=== PATIENT | female | born 1990 | race Hispanic/Latino ===

== ENCOUNTER 2024-02-13 12:39 | Inpatient (IN) | payer MEDICAID, OTHER, SELFPAY ==
[2024-02-13 14:33] LABS: #Basophils 0.01 10x3/uL (0.0-0.2); #Eosinophils 0.02 10x3/uL (0.0-0.5); #Monocytes 0.55 10x3/uL (0.0-1.1); #Neutrophils 7.17 10x3/uL (1.5-8.4); %Basophils 0.1 % (0.0-2.0); %Eosinophils 0.2 % (0.0-6.0); %Lymphocytes 14.1 % (18.0-47.0); %Neutrophils 78.4 % (40.0-75.0); Hematocrit 37.5 % (34.9-44.5); Hemoglobin 12.2 g/dL (12.0-15.5); Mean Corpuscular HGB CONC 32.5 g/dL (32.0-36.0); Mean Corpuscular Hemoglobin 30.2 pg (27.0-33.0); Mean Corpuscular Volume 92.8 fL (81.6-98.3); Mean Platelet Volume 10.3 fL (7.4-10.4); Platelet Count 279 10x3/uL (150-450); RBC Distribution Width 13.8 % (11.5-14.5); Red Blood Cell (RBC) Count 4.04 10x6/uL (3.90-5.03); White Blood Cell (WBC) Count 9.2 10x3/uL (3.5-10.5)
[2024-02-13 17:27] LABS: Hep B Surf Ag - L&D Non-Reactive S/CO (NonReactive)
[2024-02-13 17:29] LABS: Syphilis Antibody Nonreactive (Nonreactive); Syphilis Antibody Index 0.07 S/CO (<1.00 Non-Reactive)
[2024-02-13] MEDS ORDERED: Diphenoxylate HCl/Atropine Tablet PO PRN (19:41)
[2024-02-13] MEDS ORDERED: Carboprost 250 MCG/ML AMP IM PRN (19:41)
[2024-02-13] MEDS ORDERED: hydrALAZINE 20 MG/ML VIAL SLOW IVP PRN (19:41)
[2024-02-13] MEDS ORDERED: Ibuprofen 800 MG TAB PO PRN (19:41)
[2024-02-13] MEDS ORDERED: Acetaminophen 500 MG TAB PO PRN (19:41)
[2024-02-13] MEDS ORDERED: Ondansetron PF 4 MG/2 ML Vial IVP PRN (19:41)
[2024-02-13] MEDS ORDERED: Tranexamic Acid 1,000 MG/10 ML VIAL IVP PRN (19:41)
[2024-02-13] MEDS ORDERED: Lidocaine 1% (PF) 30 ML VIAL SC PRN (19:41)
[2024-02-13] MEDS ORDERED: Promethazine HCl 25 MG/ML VIAL IM PRN (19:41)
[2024-02-13] MEDS ORDERED: HYDROcodone/Acetaminophen 5/325 mg Tablet PO PRN (19:41)
[2024-02-13] MEDS ORDERED: Oxytocin 30 units/NS 500 ML 500 ML IV SCH (19:45)
[2024-02-14 00:17] VITALS: BMI 35.9
[2024-02-14] MEDS: Misoprostol 100 MCG TAB PO SCH (00:47)
[2024-02-14] MEDS: Lactated Ringer's 1,000 ML IV SCH (04:06)
[2024-02-14] MEDS: Oxytocin 30 units/NS 500 ML 500 ML IV SCH ×2 (07:34→20:50)
[2024-02-14] MEDS: fentaNYL 50 mcg/mL 1 mL Vial SLOW IVP PRN (11:58)
[2024-02-14] MEDS: fentaNYL/Ropivacaine Epidural 100 ML ONE (16:02)
[2024-02-14] MEDS ORDERED: ePHEDrine Sulfate 50 MG/10 ML VIAL SLOW IVP PRN (16:20)
[2024-02-14] MEDS ORDERED: diphenhydrAMINE 50 MG/ML VIAL IVP PRN (16:20)
[2024-02-14] MEDS ORDERED: Moisturizing Cream (Eucerin) 113 GM JAR TOP PRN (16:20)
[2024-02-14] MEDS ORDERED: Ondansetron PF 4 MG/2 ML Vial IVP PRN (16:20)
[2024-02-14] MEDS ORDERED: Promethazine HCl 25 MG/ML VIAL IM PRN (16:20)
[2024-02-14] MEDS ORDERED: Acetaminophen 325 MG TAB PO PRN ×2 (16:20→23:53)
[2024-02-14] MEDS ORDERED: Naloxone HCl 0.4 mg/ml Vial IVP PRN ×2 (16:20)
[2024-02-14] MEDS ORDERED: Lactated Ringer's 500 ML IV PRN (16:20)
[2024-02-14] MEDS ORDERED: fentaNYL 2 mcg/Ropivacaine 0.2% Epidural 100 ML CADD EPIDURAL SCH (16:30)
[2024-02-14] MEDS ORDERED: Communication Order-Pharmacy FS SCH (16:30)
[2024-02-14] MEDS: Misoprostol 200 MCG TAB PR PRN (20:50)
[2024-02-14] MEDS: Methylergonovine 0.2 MG/ML VIAL IM PRN (21:56)
[2024-02-14] MEDS ORDERED: Boostrix 0.5 ML (Tdap) VIAL (>/=7 yrs of age) IM ONE (23:52)
[2024-02-14] MEDS ORDERED: Milk Of Magnesia 30 ML UDCUP PO PRN (23:52)
[2024-02-14] MEDS ORDERED: Bisacodyl 10 MG SUPP PR PRN (23:52)
[2024-02-14] MEDS ORDERED: hydrALAZINE 20 MG/ML VIAL SLOW IVP PRN (23:52)
[2024-02-15] MEDS: Ibuprofen 800 MG TAB PO SCH ×2 (00:58→21:33)
[2024-02-15] MEDS: Docusate 100 MG CAP PO SCH (13:36)
[2024-02-15] MEDS: Ferrous Sulfate 325 MG TAB PO SCH (13:36)
[2024-02-15] MEDS ORDERED: fentaNYL 50 mcg/mL 1 mL Vial SLOW IVP PRN (16:20)
[2024-02-16 07:57] VITALS: BP 122/83; TEMP 97.6
== END 2024-02-16 12:23 | disposition home or self-care (01) | DRG 806 ==
LOC: CSHLD 12:39 → CSHPP 02-14 22:50
PROVIDERS: ADMIT Family Medicine; ATTEND Family Medicine
PROC: 10907ZC Drainage of Amniotic Fluid, Therapeutic from Products of Conception, Via Natural or Artificial Opening (ICD-10-PCS; 2024-02-13)
PROC: 10H07YZ Insertion of Other Device into Products of Conception, Via Natural or Artificial Opening (ICD-10-PCS; 2024-02-13)
PROC: 10E0XZZ Delivery of Products of Conception, External Approach (ICD-10-PCS; principal; 2024-02-14)
DX: O99.214 Obesity complicating childbirth (principal); O41.03X0 Oligohydramnios, third trimester, not applicable or unspecified; Z37.0 Single live birth; Z3A.38 38 weeks gestation of pregnancy; E66.01 Morbid (severe) obesity due to excess calories
CPT/HCPCS: 51702; 85025; 86780; 86850; 86900; 86901; 87340; J2210; J2590; J3010; J7120